=== PATIENT | female | born 1945 | race Caucasian/White ===

== ENCOUNTER 2017-04-04 06:38 | Day surgery (SDC) | payer MEDICARE, OTHER ==
[~2017-04-04 06:38] MED LIST: RINGERS SOLUTION,LACTATED 1,000 ML IV PRN
[2017-04-04] MEDS ORDERED: LIDOCAINE HCL/EPINEPHRINE 50 ML VIAL IJ ONE (08:10)
--- NOTE | 2017-04-04 09:08 | OR ---
Operative Report - Dictated Report Narrative: DATE OF PROCEDURE: 04/04/2017 INDICATION: 71-year-old female with postmenopausal bleeding noted on pelvic ultrasound and endometrial biopsy to have uterine fibroids and polyps PREOPERATIVE DIAGNOSIS: Postmenopausal bleeding, uterine fibroids, uterine polyps POSTOPERATIVE DIAGNOSIS: Same PROCEDURE: Hysteroscopy, D&C, Myomectomy, Polypectomy SURGEON: Salvador Santamaria D.O. MANAGER DIALYSIS: OR staff ANESTHESIA: IV sedation, Paracervical block - Xylocaine 2% with epi ESTIMATED BLOOD LOSS: minimal URINE OUTPUT: not recorded FLUID REPLACEMENT: 500 mL FINDINGS: Uterine cavity sounded to 9 cm, mid-fundal (1 o'clock position, 1cm) and right lateral (9 o'clock position, 2cm) submucosal fibroids, mid-fundal polyp (11 o'clock position, <1cm) SPECIMEN(S): Endometrial curettings ,polyp ,fibroids TECHNIQUE: The patient was taken to the operating room and placed in dorsal lithotomy position after adequate IV sedation was obtained. After sterile prep and drape, the anterior lip of the cervix was grasped with a long Allis clamp. A paracervical block was given using a 1% lidocaine with epinephrine solution. The uterus sounded to 9 cm. The 5 mm hysteroscope was inserted into the uterine cavity with findings as noted above. Using the curet, the entire uterine cavity was curettaged. The hysteroscope was reinserted noting thorough sampling of the entire uterine cavity. Sponge, lap, instrument, needle count correct x 2. DISPOSITION: The patient was transferred to the post anesthesia care unit in good condition.
[2017-04-04] MEDS ORDERED: MORPHINE SULFATE 2 MG/ML DISP.SYRIN IV PRN (09:16)
[2017-04-04] MEDS ORDERED: oxyCODONE HCL/ACETAMINOPHEN 1 TAB TABLET PO SCH (09:30)
[2017-04-04] MEDS ORDERED: IBUPROFEN 800 MG TABLET PO SCH (09:30)
[2017-04-04 11:19] VITALS: BP 137/69
== END 2017-04-04 06:39 | disposition home or self-care (01) ==
LOC: AMB 06:38
PROVIDERS: ATTEND Obstetrics & Gynecology
PROC: 0UB98ZX Excision of Uterus, Via Natural or Artificial Opening Endoscopic, Diagnostic (ICD-10-PCS; principal; 2017-04-04 08:00)
DX: D25.0 Submucous leiomyoma of uterus (principal); N84.0 Polyp of corpus uteri; I10 Essential (primary) hypertension; K21.9 Gastro-esophageal reflux disease without esophagitis; Z68.32 Body mass index [BMI] 32.0-32.9, adult